=== PATIENT | female | born 1985 | race Caucasian/White ===

== ENCOUNTER 2019-09-06 14:57 | Emergency (ER) | payer OTHER ==
[2019-09-06 15:44] LABS: Absolute Lymphocytes (CBC) 1.2 K/uL (0.7-4.9); Basophils % 0.5 % (0-1.3); Lymphocytes % 25.5 % (15.3-44.8); MPV 8.7 fL (7.6-11.3); RBC Red Blood Cell Count 4.44 M/uL (3.86-4.86)
[2019-09-06 15:47] LABS: Protime INR 1.1
[2019-09-06 16:04] LABS: ALT/SGPT 20 U/L (12-78); AST/SGOT 13 U/L (15-37); Alkaline Phosphatase 79 U/L (45-117); BUN Blood Urea Nitrogen 8 mg/dL (7-18); Bicarbonate 19 mmol/L (21-32); Bilirubin Direct 0.1 mg/dL (0-0.2); Bilirubin Total 0.4 mg/dL (0.2-1.0); Glucose Level 81 mg/dL (74-106); Magnesium 2.1 mg/dL (1.8-2.4); NT PRO-BNP 126 pg/mL (<125); Potassium 3.5 mmol/L (3.5-5.1); Protein, Total 7.6 g/dL (6.4-8.2); Sodium Level 140 mmol/L (136-145); Troponin (Emerg Dept Use Only) < 0.02 ng/mL (0.0-0.045)
[2019-09-06] MEDS ORDERED: ONDANSETRON 4 MG/2 ML VIAL ONE (16:10)
[2019-09-06] MEDS ORDERED: MORPHINE 4 MG/ML SYR ONE (16:10)
--- NOTE | 2019-09-06 16:35 | EDPHYS ---
Physician Documentation [facility] Name: Hiral Patten Age: 34 yrs Sex: Female : 1985 Arrival Date: 09/06/2019 Time: 15:00 Bed 13 Private MD: Pastor Gomez T ED Physician Blanca Storey HPI: 09/06 15:23 This 34 yrs old Female presents to ER via Ambulatory with complaints of Chest pm1 Pressure. 15:23 The patient or guardian reports chest pain that is located primarily in the mid-sternal pm1 area. The pain does not radiate. Associated signs and symptoms: The patient has no apparent associated signs or symptoms, Pertinent negatives: abdominal pain, cough, headache, nausea, shortness of breath, vomiting. The chest pain is described as a pressure. Duration: The patient or guardian reports a single episode, that is still ongoing. Modifying factors: the symptoms are aggravated by deep breath, palpation of area, movement of arms. The patient has experienced similar episodes in the past, multiple times, on and off for the past several months. onset of current chest pain last night. Historical: - Allergies: 15:11 Sulfa (Sulfonamide Antibiotics); la1 15:11 Keflex; la1 - PMHx: 15:11 graves disease; leaky valve; la1 - Immunization history:: Adult Immunizations up to date. - Social history:: Smoking status: Patient/guardian denies using tobacco. - Ebola Screening: : No symptoms or risks identified at this time. ROS: 15:23 Constitutional: Negative for fever, chills, and weight loss, Eyes: Negative for injury, pm1 pain, redness, and discharge, ENT: Negative for injury, pain, and discharge, Neck: Negative for injury, pain, and swelling. 15:23 Respiratory: Negative for shortness of breath, cough, wheezing, and pleuritic chest pain, Abdomen/GI: Negative for abdominal pain, nausea, vomiting, diarrhea, and constipation, Back: Negative for injury and pain, : Negative for injury, bleeding, discharge, and swelling, MS/Extremity: Negative for injury and deformity, Skin: Negative for injury, rash, and discoloration, Neuro: Negative for headache, weakness, numbness, tingling, and seizure. 15:23 Cardiovascular: Positive for chest pain, Negative for edema, orthopnea, palpitations. Exam: 15:23 Constitutional: This is a well developed, well nourished patient who is awake, alert, pm1 and in no acute distress. Head/Face: Normocephalic, atraumatic. Neck: Trachea midline, no thyromegaly or masses palpated, and no cervical lymphadenopathy. Supple, full range of motion without nuchal rigidity, or vertebral point tenderness. No Meningismus. Cardiovascular: Regular rate and rhythm with a normal S1 and S2. No gallops, murmurs, or rubs. Normal PMI, no JVD. No pulse deficits. 15:23 Respiratory: Lungs have equal breath sounds bilaterally, clear to auscultation and percussion. No rales, rhonchi or wheezes noted. No increased work of breathing, no retractions or nasal flaring. Abdomen/GI: Soft, non-tender, with normal bowel sounds. No distension or tympany. No guarding or rebound. No evidence of tenderness throughout. Back: No spinal tenderness. No costovertebral tenderness. Full range of motion. Skin: Warm, dry with normal turgor. Normal color with no rashes, no lesions, and no evidence of cellulitis. MS/ Extremity: Pulses equal, no cyanosis. Neurovascular intact. Full, normal range of motion. 15:23 Chest/axilla: Inspection: normal, Palpation: crepitus, is not appreciated, tenderness, of the mid-sternal area, that totally reproduces the patient's complaints. 15:23 Neuro: Orientation: is normal, Motor: is normal, moves all fours. Vital Signs: 15:11 BP 113 / 76; Pulse 84; Resp 16; Temp 98.5; Pulse Ox 100% on R/A; Weight 92.99 kg; la1 Height 5 ft. 5 in. (165.10 cm); 15:11 Body Mass Index 34.11 (92.99 kg, 165.10 cm) la1 MDM: 15:15 Patient medically screened. pm1 15:25 Data reviewed: vital signs. Data interpreted: Pulse oximetry: on room air is 100 %. pm1 Interpretation: normal. 16:33 Counseling: I had a detailed discussion with the patient and/or guardian regarding: the pm1 historical points, exam findings, and any diagnostic results supporting the discharge/admit diagnosis, lab results, radiology results, the need for outpatient follow up, to return to the emergency department if symptoms worsen or persist or if there are any questions or concerns that arise at home. 09/06 15:23 Order name: Basic Metabolic Panel; Complete Time: 16:23 pm1 09/06 15:23 Order name: CBC with Diff; Complete Time: 16:00 pm1 09/06 15:23 Order name: LFT's; Complete Time: 16:23 pm1 09/06 15:23 Order name: Magnesium; Complete Time: 16:23 pm1 09/06 15:23 Order name: NT PRO-BNP; Complete Time: 16:23 pm1 09/06 15:23 Order name: PT-INR; Complete Time: 16:00 pm1 09/06 15:23 Order name: Troponin (emerg Dept Use Only); Complete Time: 16:23 pm1 09/06 15:23 Order name: XRAY Chest (1 view) pm1 09/06 15:23 Order name: EKG; Complete Time: 15:25 pm1 09/06 15:23 Order name: Cardiac monitoring; Complete Time: 15:48 pm1 09/06 15:23 Order name: EKG - Nurse/Tech; Complete Time: 15:48 pm1 09/06 15:23 Order name: IV Saline Lock; Complete Time: 15:48 pm1 09/06 15:23 Order name: Labs collected and sent; Complete Time: 15:48 pm1 09/06 15:23 Order name: O2 Per Protocol; Complete Time: 15:48 pm1 09/06 15:23 Order name: O2 Sat Monitoring; Complete Time: 15:48 pm1 Administered Medications: 16:13 Drug: Zofran 4 mg Route: IVP; Site: right antecubital; ph 16:20 Drug: morphine 4 mg Route: IVP; Site: right antecubital; ph 17:00 Drug: Flexeril 10 mg Route: PO; ph 17:00 Drug: TORadol - Ketorolac 15 mg Route: IVP; Site: right antecubital; ph Disposition: 09/07 16:45 Co-signature as Attending Physician, Blanca Storey MD. ma2 Disposition: 09/06/19 16:34 Discharged to Home. Impression: Chest pain, unspecified. - Condition is Stable. - Discharge Instructions: Nonspecific Chest Pain. - Prescriptions for Naprosyn 500 mg Oral Tablet - take 1 tablet by ORAL route 2 times per day As needed take with food; 30 tablet. Cyclobenzaprine 10 mg Oral Tablet - take 1 tablet by ORAL route every 8 hours As needed; 30 tablet. - Medication Reconciliation Form, Thank You Letter, Antibiotic Education, Prescription Opioid Use form. - Follow up: Emergency Department; When: As needed; Reason: Worsening of condition. Follow up: Private Physician; When: 2 - 3 days; Reason: Recheck today's complaints, Continuance of care, Re-evaluation by your physician. - Problem is new. - Symptoms have improved. Signatures: Dispatcher [employer] EDMS Janak Hand RN RN la1 Izzy Hogue RN RN ph Anurag Ramirez, HEALTH EDUCATION AIDE HEALTH EDUCATION AIDE pm1 Blanca Storey MD MD ma2 Corrections: (The following items were deleted from the chart) 09/06 17:19 16:34 09/06/2019 16:34 Discharged to Home. Impression: Chest pain, unspecified. ph Condition is Stable. Forms are Medication Reconciliation Form, Thank You Letter, Antibiotic Education, Prescription Opioid Use. Follow up: Emergency Department; When: As needed; Reason: Worsening of condition. Follow up: Private Physician; When: 2 - 3 days; Reason: Recheck today's complaints, Continuance of care, Re-evaluation by your physician. Problem is new. Symptoms have improved. pm1
--- NOTE | 2019-09-06 16:35 | ER ---
Nurse's Notes [facility] Name: Hiral Patten Age: 34 yrs Sex: Female : 1985 Arrival Date: 09/06/2019 Time: 15:00 Bed 13 Private MD: Pastor Gomez T Diagnosis: Chest pain, unspecified Presentation: 09/06 15:10 Presenting complaint: Patient states: I have been having chest pressure, nausea and la1 dizziness since last night. Transition of care: patient was not received from another setting of care. Onset of symptoms was September 06, 2019. Risk Assessment: Do you want to hurt yourself or someone else? Patient reports no desire to harm self or others. Initial Sepsis Screen: Does the patient meet any 2 criteria? No. Patient's initial sepsis screen is negative. Does the patient have a suspected source of infection? No. Patient's initial sepsis screen is negative. Care prior to arrival: None. 15:10 Method Of Arrival: Ambulatory la1 15:10 Acuity: CHUCK 3 la1 Historical: - Allergies: 15:11 Sulfa (Sulfonamide Antibiotics); la1 15:11 Keflex; la1 - PMHx: 15:11 graves disease; leaky valve; la1 - Immunization history:: Adult Immunizations up to date. - Social history:: Smoking status: Patient/guardian denies using tobacco. - Ebola Screening: : No symptoms or risks identified at this time. Screenin:18 Abuse screen: Denies threats or abuse. Denies injuries from another. Nutritional ph screening: No deficits noted. Tuberculosis screening: No symptoms or risk factors identified. Fall Risk None identified. Assessment: 15:38 General: Appears in no apparent distress. comfortable, obese, well groomed, Behavior is ph calm, cooperative, appropriate for age, Denies fever. Pain: Complains of pain in xyphoid area and mid-sternal area Pain radiates to right supraclavicular area, right clavicle, left supraclavicular area, left clavicle, anterior aspect of right upper chest and anterior aspect of left upper chest Quality of pain is described as pressure, Pain began last night. Neuro: Level of Consciousness is awake, alert, obeys commands, Oriented to person, place, time, situation. Cardiovascular: Capillary refill < 3 seconds in bilateral fingers Patient's skin is warm and dry. Respiratory: Airway is patent Respiratory effort is even, unlabored, Respiratory pattern is regular, symmetrical, Denies shortness of breath. GI: Reports nausea, Patient currently denies diarrhea, vomiting. Derm: Skin is intact, is healthy with good turgor, Skin is pink, warm \T\ dry. Musculoskeletal: Circulation, motion, and sensation intact. Range of motion: intact in all extremities. Vital Signs: 15:11 BP 113 / 76; Pulse 84; Resp 16; Temp 98.5; Pulse Ox 100% on R/A; Weight 92.99 kg; la1 Height 5 ft. 5 in. (165.10 cm); 15:11 Body Mass Index 34.11 (92.99 kg, 165.10 cm) la1 ED Course: 15:00 Patient arrived in ED. mr 15:01 Pastor Gomez MD is Private Physician. mr 15:11 Triage completed. la1 15:12 Arm band placed on right wrist. la1 15:13 Izzy Hogue RN is Primary Nurse. ph 15:14 Anurag Ramirez NP is PHCP. pm1 15:15 Blanca Storey MD is Attending Physician. pm1 15:18 Patient has correct armband on for positive identification. Placed in gown. Bed in low ph position. Call light in reach. Side rails up X 1. residential monitor on. Pulse ox on. NIBP on. Door closed. Noise minimized. Warm blanket given. 15:41 Inserted saline lock: 22 gauge in right antecubital area, using aseptic technique. ph Blood collected. Patient maintains SpO2 saturation greater than 95% on room air. 15:47 XRAY Chest (1 view) In Process Unspecified. EDMS Administered Medications: 16:13 Drug: Zofran 4 mg Route: IVP; Site: right antecubital; ph 16:20 Drug: morphine 4 mg Route: IVP; Site: right antecubital; ph 17:00 Drug: Flexeril 10 mg Route: PO; ph 17:00 Drug: TORadol - Ketorolac 15 mg Route: IVP; Site: right antecubital; ph Outcome: 16:34 Discharge ordered by . pm1 17:19 Patient left the ED. ph Signatures: Dispatcher [employer] EDMS Kitty Austin Giselajamee Janak, RN RN la1 Izzy Hogue, RN RN ph Anurag Ramirez, FIRST CALENDER WORKER FIRST CALENDER WORKER pm1
--- NOTE | 2019-09-06 16:55 | RAD REPORT ---
EXAM DESCRIPTION: Sarah Single View09/06/2019 3:46 pm CLINICAL HISTORY: Chest pain COMPARISON: none FINDINGS: The lungs appear clear of acute infiltrate. The heart is normal size IMPRESSION: No acute abnormalities displayed
[2019-09-06] MEDS ORDERED: CYCLOBENZAPRINE 10 MG TAB ONE (17:01)
[2019-09-06] MEDS ORDERED: KETOROLAC 30 MG/ML INJ ONE (17:01)
[2019-09-06 17:32] VITALS: BP 113/76; TEMP 98.5; O2SAT 100
--- NOTE | 2019-09-07 08:39 | EKG ---
Test Date: 2019-09-06 Test Time: 15:19:11 [employer] T[employer] Technician: MYRTLE MEASUREMENT RESULTS: Intervals: Rate: 75 LA: 134 QRSD: 82 QT: 378 QTc: 422 [place]: P: 35 LA: 134 QRS: 1 T: 1 INTERPRETIVE STATEMENTS: Normal sinus rhythm Low voltage QRS Abnormal ECG No previous ECG available for comparison Electronically Signed On 09-07-19 08:38:41 PREMIUM NOTE INTEREST CALCULATOR CLERK by James Conroy
== END 2019-09-06 17:19 | disposition home or self-care (01) ==
LOC: ER 14:57
DX: R07.9 Chest pain, unspecified (principal); E05.00 Thyrotoxicosis with diffuse goiter without thyrotoxic crisis or storm; Z88.2 Allergy status to sulfonamides; Z88.8 Allergy status to other drugs, medicaments and biological substances
CPT/HCPCS: 93005; 85025; 80048; 36415; 83735; 85610; 80076; 84484; 83880; 71045; 96375; 96374; 99285; J2405

== ENCOUNTER 2021-01-21 18:59 | Emergency (ER) | payer OTHER ==
[2021-01-21 20:14] LABS: Absolute Lymphocytes (CBC) 2.1 K/uL (0.7-4.9); Basophils % 0.6 % (0-1.3); Hematocrit 36.2 % (36.0-45.0); Lymphocytes % 32.4 % (15.3-44.8); MPV 8.9 fL (7.6-11.3); RBC Red Blood Cell Count 4.32 M/uL (3.86-4.86)
[2021-01-21 20:20] LABS: Protime INR 1.02
[2021-01-21 20:33] LABS: ALT/SGPT 16 U/L (12-78); AST/SGOT 12 U/L (15-37); Albumin 3.9 g/dL (3.4-5.0); Alkaline Phosphatase 70 U/L (45-117); BUN Blood Urea Nitrogen 10 mg/dL (7-18); Bicarbonate 21 mmol/L (21-32); Bilirubin Direct 0.1 mg/dL (0-0.2); Bilirubin Total 0.3 mg/dL (0.2-1.0); Glucose Level 82 mg/dL (74-106); Magnesium 2.2 mg/dL (1.8-2.4); NT PRO-BNP 62 pg/mL (<125); Potassium 3.9 mmol/L (3.5-5.1); Protein, Total 7.7 g/dL (6.4-8.2); Sodium Level 140 mmol/L (136-145); Troponin (Emerg Dept Use Only) < 0.02 ng/mL (0.0-0.045)
--- NOTE | 2021-01-21 20:55 | RAD REPORT ---
EXAM DESCRIPTION: Sarah Single View01/21/2021 8:35 pm CLINICAL HISTORY: Chest pain COMPARISON: 2018 FINDINGS: The lungs appear clear of acute infiltrate. The heart is normal size IMPRESSION: No acute abnormalities displayed
[2021-01-21 21:03] LABS: Platelet Estimate ADEQ; White Blood Cell Scan OK (OK)
[2021-01-21 21:04] LABS: Blood Morphology Comment NOT SEEN (NOT SEEN)
[2021-01-21] MEDS ORDERED: NA CHLORIDE 0.9% 500 ML ONE (21:53)
[2021-01-21 22:39] LABS: Urine Blood NEGATIVE (Negative); Urine Glucose NEGATIVE (Negative); Urine Protein NEGATIVE (NEG); Urine Specific Gravity 1.025 (1.005-1.030); Urine Specific Gravity/Preg 1.025 (1.005-1.030); Urine pH 6.5 (5.0-7.0)
[2021-01-21 23:16] LABS: Urine Bacteria >50 /HPF (<20); Urine RBC <5 /HPF (NONE SEEN)
[2021-01-21 23:17] LABS: Urine Mucus 3+ /HPF (NONE SEEN)
--- NOTE | 2021-01-22 00:02 | ER ---
Nurse's Notes [facility] Name: Hiral Patten Age: 35 yrs Sex: Female : 1985 Arrival Date: 01/21/2021 Time: 19:01 Bed 16 Private MD: Diagnosis: Palpitations;Other chest pain Presentation: 01/21 19:16 Chief complaint: Patient states: Palpitations for 2 days, Chest pressure for 1 day. No ll1 fever or cough. Slight nausea. Coronavirus screen: Client denies travel out of the [place] in the last 14 days. At this time, the client does not indicate any symptoms associated with coronavirus-19. Ebola Screen: Patient denies travel to an Ebola-affected area in the 21 days before illness onset. Initial Sepsis Screen: Does the patient meet any 2 criteria? No. Patient's initial sepsis screen is negative. Does the patient have a suspected source of infection? No. Patient's initial sepsis screen is negative. Risk Assessment: Do you want to hurt yourself or someone else? Patient reports no desire to harm self or others. Onset of symptoms was January 20, 2021. 19:16 Method Of Arrival: Ambulatory ll1 19:16 Acuity: CHUCK 3 ll1 Historical: - Allergies: 19:16 Sulfa (Sulfonamide Antibiotics); ll1 19:16 Keflex; ll1 - PMHx: 19:16 graves disease; Leaky valve; "heart skips beats"; ll1 - PSHx: 19:16 ; ll1 - Immunization history:: Flu vaccine is not up to date. - Social history:: Smoking status: Patient denies any tobacco usage or history of. Screenin:08 Abuse screen: Denies threats or abuse. Nutritional screening: No deficits noted. vg1 Tuberculosis screening: No symptoms or risk factors identified. Fall Risk No fall in past 12 months (0 pts). No secondary diagnosis (0 pts). IV access (20 points). Ambulatory Aid- None/Bed Rest/Nurse Assist (0 pts). Gait- Normal/Bed Rest/Wheelchair (0 pts) Mental Status- Oriented to own ability (0 pts). Total Damico Fall Scale indicates No Risk (0-24 pts). Assessment: 19:45 General: Appears in no apparent distress. comfortable, Behavior is calm, cooperative. vg1 Pain: Complains of pain in xyphoid area Pain does not radiate. Pain currently is 8 out of 10 on a pain scale. Pain began this morning. Neuro: Level of Consciousness is awake, alert, obeys commands, Oriented to person, place, time, situation. Neuro: Reports headache. Cardiovascular: Patient's skin is warm and dry. Respiratory: Airway is patent Respiratory effort is even, unlabored. GI: Reports nausea, Patient currently denies diarrhea, vomiting. : No signs and/or symptoms were reported regarding the genitourinary system. EENT: No signs and/or symptoms were reported regarding the EENT system. Derm: Skin is intact, Skin is clammy. Musculoskeletal: Circulation, motion, and sensation intact. 21:56 Reassessment: Patient appears in no apparent distress at this time. No changes from vg1 previously documented assessment. Patient and/or family updated on plan of care and expected duration. Pain level reassessed. Patient is alert, oriented x 3, equal unlabored respirations, skin warm/dry/pink. 01/22 00:19 Reassessment: Patient appears in no apparent distress at this time. No changes from vg1 previously documented assessment. Patient and/or family updated on plan of care and expected duration. Pain level reassessed. Patient is alert, oriented x 3, equal unlabored respirations, skin warm/dry/pink. Vital Signs: 01/21 19:16 BP 117 / 71; Pulse 86; Resp 17; Temp 98.4; Pulse Ox 100% ; Weight 90.72 kg; Height 5 ll1 ft. 3 in. (160.02 cm); Pain 8/10; 19:45 BP 107 / 67; Pulse 94; Resp 16; Pulse Ox 100% on R/A; vg1 21:00 BP 106 / 70; Pulse 83; Resp 20; Pulse Ox 100% on R/A; vg1 22:00 BP 110 / 65; Pulse 91; Resp 22; Pulse Ox 100% on R/A; vg1 23:00 BP 112 / 75; Pulse 83; Resp 20; Pulse Ox 100% on R/A; vg1 01/22 00:00 BP 107 / 73; Pulse 82; Resp 22; Pulse Ox 98% on R/A; vg1 01/21 19:16 Body Mass Index 35.43 (90.72 kg, 160.02 cm) ll1 ED Course: 01/21 19:01 Patient arrived in ED. mr 19:15 Arm band placed on. ll1 19:18 Triage completed. ll1 19:18 Kanu Aguirre PA is PHCP. cp 19:18 Theodore Encinas MD is Attending Physician. cp 19:41 Barbi Curry, RN is Primary Nurse. vg1 20:04 EKG done, by ED staff, reviewed by Kanu GARCIA. vg1 20:08 Patient has correct armband on for positive identification. Placed in gown. Bed in low vg1 position. Call light in reach. Side rails up X 1. 20:09 bus driver/monitor on. Pulse ox on. NIBP on. vg1 20:09 Patient maintains SpO2 saturation greater than 95% on room air. vg1 20:35 XRAY Chest (1 view) In Process Unspecified. EDMS 21:30 Notified Nurse Practitioner and/or Physician Fish Net Stringer of a critical lab result(s), D bb Dimer of [address] Kanu GARCIA notified. 23:16 CT Chest For PE Angio In Process Unspecified. EDMS 01/22 00:21 No provider procedures requiring assistance completed. IV discontinued, intact, vg1 bleeding controlled, No redness/swelling at site. Pressure dressing applied. Administered Medications: 01/21 22:47 Drug: NS 0.9% 500 ml Route: IV; Rate: bolus; Site: left antecubital; vg1 23:45 Follow up: IV Status: Completed infusion; IV Intake: 500ml vg1 01/22 00:05 Drug: TORadol - Ketorolac 15 mg Route: IVP; Site: left antecubital; vg1 00:19 Follow up: Response: No adverse reaction vg1 Intake: 01/21 23:45 IV: 500ml; Total: 500ml. vg1 Outcome: 01/22 00:02 Discharge ordered by . cp 00:21 Discharged to home ambulatory. vg1 00:21 Condition: stable 00:21 Discharge instructions given to patient, Instructed on discharge instructions, follow up and referral plans. medication usage, Demonstrated understanding of instructions, follow-up care, medications, Prescriptions given X 1. 00:21 Patient left the ED. vg1 Signatures: Dispatcher [facility] Kitty Austin Brenda, RN RN bb Kanu Aguirre PA PA cp Garcia, Victoria, RN RN vg1 Mumtaz Knight RN RN ll1 Corrections: (The following items were deleted from the chart) 01/21 19:26 19:16 Chief complaint: Patient states: Palpitations for 2 days, Chest pressure for 1 ll1 days. No fever or cough. Slight nausea. ll1
--- NOTE | 2021-01-22 00:02 | EDPHYS ---
Physician Documentation [facility] Name: Hiral Patten Age: 35 yrs Sex: Female : 1985 Arrival Date: 01/21/2021 Time: 19:01 Bed 16 Private MD: ED Physician Theodore Encinas HPI: 01/21 19:45 This 35 yrs old Female presents to ER via Ambulatory with complaints of Chest cp Pain. 19:45 The patient presents with a history of heart skipping beats. cp 19:45 Context: The symptoms occur at rest, without known cause. Onset: The symptoms/episode cp began/occurred 2 day(s) ago. Duration: The patient or guardian reports multiple episodes, that are intermittent. Modifying factors: The symptoms are aggravated by nothing. Associated signs and symptoms: Pertinent positives: chest pain, Pertinent negatives: cough, fever, SOB, syncope, vomiting. Severity of symptoms: in the emergency department the symptoms are unchanged despite home interventions. Historical: - Allergies: 19:16 Sulfa (Sulfonamide Antibiotics); ll1 19:16 Keflex; ll1 - PMHx: 19:16 graves disease; Leaky valve; "heart skips beats"; ll1 - PSHx: 19:16 ; ll1 - Immunization history:: Flu vaccine is not up to date. - Social history:: Smoking status: Patient denies any tobacco usage or history of. ROS: 19:50 Constitutional: Negative for body aches, chills, fever, poor PO intake. cp 19:50 Eyes: Negative for injury, pain, redness, and discharge. cp Exam: 19:55 Constitutional: The patient appears in no acute distress, alert, awake, cp non-diaphoretic, non-toxic, well developed, well nourished, obese. 19:55 Head/Face: Normocephalic, atraumatic. cp 19:55 Eyes: Periorbital structures: appear normal, Pupils: equal, round, and reactive to light and accomodation, Extraocular movements: intact throughout, Conjunctiva: normal, no exudate, no injection, Sclera: no appreciated abnormality, Lids and lashes: appear normal, bilaterally. 19:55 ENT: External ear(s): are unremarkable, Nose: is normal, Mouth: Lips: moist, Oral mucosa: moist, Posterior pharynx: Airway: no evidence of obstruction, patent. 19:55 Neck: ROM/movement: is normal, is supple, without pain, no range of motions limitations. 19:55 Chest/axilla: Inspection: normal, Palpation: is normal, no crepitus, no tenderness. 19:55 Cardiovascular: Rate: normal, Rhythm: regular, Edema: is not appreciated, JVD: is not appreciated. 19:55 Respiratory: the patient does not display signs of respiratory distress, Respirations: normal, no use of accessory muscles, no retractions, labored breathing, is not present, Breath sounds: are clear throughout, no decreased breath sounds, no stridor, no wheezing. 19:55 Abdomen/GI: Inspection: abdomen appears normal, Palpation: abdomen is soft and non-tender, in all quadrants. 19:55 Back: pain, is absent, ROM is normal. 19:55 Musculoskeletal/extremity: DVT Exam: No signs of deep vein thrombosis. 19:55 Skin: cellulitis, is not appreciated, no rash present. 19:55 Neuro: Orientation: to person, place \\T\\ time. Mentation: is normal, Motor: moves all fours, strength is normal, Sensation: is normal. 20:00 ECG was reviewed by the Attending Physician. cp Vital Signs: 19:16 BP 117 / 71; Pulse 86; Resp 17; Temp 98.4; Pulse Ox 100% ; Weight 90.72 kg; Height 5 ll1 ft. 3 in. (160.02 cm); Pain 8/10; 19:45 BP 107 / 67; Pulse 94; Resp 16; Pulse Ox 100% on R/A; vg1 21:00 BP 106 / 70; Pulse 83; Resp 20; Pulse Ox 100% on R/A; vg1 22:00 BP 110 / 65; Pulse 91; Resp 22; Pulse Ox 100% on R/A; vg1 23:00 BP 112 / 75; Pulse 83; Resp 20; Pulse Ox 100% on R/A; vg1 01/22 00:00 BP 107 / 73; Pulse 82; Resp 22; Pulse Ox 98% on R/A; vg1 01/21 19:16 Body Mass Index 35.43 (90.72 kg, 160.02 cm) ll1 MDM: 01/21 19:22 Patient medically screened. cp 20:00 Differential diagnosis: arrythmia, dehydration, stress disorder. 01/22 00:02 Data reviewed: vital signs, nurses notes, lab test result(s), EKG, radiologic studies, cp CT scan, plain films. 00:02 Test interpretation: by ED physician or midlevel provider: ECG, plain radiologic cp studies. 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 Response to treatment: the patient's symptoms have mildly improved after treatment. ED course: VSS. Labs, EKG, radiology studies reviewed. Patient reports she has seen cardiology in the past and had holter monitor placed. Will discharge to home for continued monitoring and recommend f/u with cardiology. 01/21 19:31 Order name: Basic Metabolic Panel 01/21 19:31 Order name: CBC with Diff 01/21 19:31 Order name: LFT's 01/21 19:31 Order name: Magnesium; Complete Time: 20:49 01/21 19:31 Order name: NT PRO-BNP; Complete Time: 20:49 01/21 19:31 Order name: PT-INR; Complete Time: 20:49 01/21 19:31 Order name: Troponin (emerg Dept Use Only); Complete Time: 20:49 01/21 19:31 Order name: Urine Microscopic Only; Complete Time: 23:50 01/21 19:32 Order name: Basic Metabolic Panel; Complete Time: 20:49 EDVT 01/21 20:49 Interpretation: Normal except: CL 111; GFR 68. 01/21 19:32 Order name: CBC with Automated Diff; Complete Time: 21:47 EDVT 01/21 23:02 Interpretation: Normal except: PLT 143; RDW 15.6. 01/21 19:32 Order name: Liver (Hepatic) Function; Complete Time: 20:49 EDVT 01/21 21:03 Order name: CBC Smear Scan; Complete Time: 21:47 EDVT 01/21 21:05 Order name: D-Dimer 01/21 21:05 Order name: LAB Add On 01/21 19:19 Order name: EKG; Complete Time: 19:20 cp 01/21 19:19 Order name: EKG - Nurse/Tech; Complete Time: 20:04 01/21 19:31 Order name: XRAY Chest (1 view); Complete Time: 21:00 cp 01/21 19:31 Order name: Cardiac monitoring; Complete Time: 20:04 01/21 19:31 Order name: IV Saline Lock; Complete Time: 20:04 01/21 19:31 Order name: Labs collected and sent; Complete Time: 20:04 cp 01/21 19:31 Order name: O2 Per Protocol; Complete Time: 20:04 cp 01/21 21:05 Order name: D-Dimer; Complete Time: 21:47 EDMS 01/21 21:47 Order name: CT Chest For PE Angio 01/21 22:37 Order name: Urine Dipstick--Ancillary (enter results) [facility] 01/21 22:37 Order name: Urine --Ancillary (enter results) [facility] 01/21 22:37 Order name: Urine Dipstick-Ancillary; Complete Time: 23:02 EDMS 01/21 22:37 Order name: Urine --Ancillary; Complete Time: 23:02 EDMS 01/21 23:17 Order name: Urine Culture [facility] 01/21 19:31 Order name: O2 Sat Monitoring; Complete Time: 20:04 01/21 19:31 Order name: Urine Dipstick-Ancillary (obtain specimen); Complete Time: 22:48 01/21 19:31 Order name: Urine Test (obtain specimen); Complete Time: 20:04 cp EC/27 20:00 Rate is 86 beats/min. Rhythm is regular. HI interval is normal. QRS interval is normal. cp QT interval is normal. T waves are Inverted in leads III, aVR. Interpreted by me. Reviewed by me. Administered Medications: 22:47 Drug: NS 0.9% 500 ml Route: IV; Rate: bolus; Site: left antecubital; vg1 23:45 Follow up: IV Status: Completed infusion; IV Intake: 500ml vg1 01/22 00:05 Drug: TORadol - Ketorolac 15 mg Route: IVP; Site: left antecubital; vg1 00:19 Follow up: Response: No adverse reaction vg1 Disposition: 05:17 Co-signature as Attending Physician, Theodore Encinas MD. [email or web address] Disposition: 01/22/21 00:02 Discharged to Home. Impression: Palpitations, Other chest pain. - Condition is Stable. - Discharge Instructions: Nonspecific Chest Pain, Palpitations, Aspirin and Your Heart. - Prescriptions for Naprosyn 500 mg Oral Tablet - take 1 tablet by ORAL route 2 times per day take with food; 20 tablet. - Medication Reconciliation Form, Thank You Letter, Antibiotic Education, Prescription Opioid Use form. - Follow up: Private Physician; When: 1 - 2 days; Reason: Recheck today's complaints. - Problem is new. - Symptoms have improved. Signatures: Dispatcher [employer] EDMS Kanu Aguirre PA PA cp Garcia, Victoria, RN RN vg1 Mumtaz Knight RN RN 1 Theodore Encinas MD MD [email or web address] Corrections: (The following items were deleted from the chart) 00:21 00:02 01/22/2021 00:02 Discharged to Home. Impression: Palpitations; Other chest pain. vg1 Condition is Stable. Forms are Medication Reconciliation Form, Thank You Letter, Antibiotic Education, Prescription Opioid Use. Follow up: Private Physician; When: 1 - 2 days; Reason: Recheck today's complaints. Problem is new. Symptoms have improved. cp
[2021-01-22] MEDS ORDERED: KETOROLAC 30 MG/ML INJ ONE (00:14)
[2021-01-22 04:26] VITALS: TEMP 98.4
[2021-01-22 04:33] VITALS: BP 107/73; O2SAT 98
--- NOTE | 2021-01-22 09:49 | EKG ---
Test Date: 2021-01-21 Test Time: 19:52:16 Emt B: CAYT MEASUREMENT RESULTS: Intervals: Rate: 86 ME: 146 QRSD: 82 QT: 376 QTc: 449 [place]: P: 56 ME: 146 QRS: 24 T: 15 INTERPRETIVE STATEMENTS: Normal sinus rhythm Normal ECG Compared to ECG 09/06/2019 15:19:11 No significant changes Electronically Signed On 01-22-21 09:47:38 CDT by Angel Lea
--- NOTE | 2021-01-23 12:21 | RAD REPORT ---
EXAM DESCRIPTION: CT - Chest For Pe Angio - 01/22/2021 7:02 am CLINICAL HISTORY: Chest pain;Palpitations. COMPARISON: None. TECHNIQUE: CTA of the chest was performed following intravenous administration of iodinated contrast . Axial soft tissue and bone window, and coronal and sagittal soft tissue window reconstructions were created and sent to PACS. 3D postprocessing was performed on an independent workstation, with images sent to PACS for subsequen t review. This exam was performed according to our departmental dose-optimization program, which includes autom ated exposure control, adjustment of the mA and/or kV according to patient size and/or use of iterati ve reconstruction technique. FINDINGS: Vascular: Slightly suboptimal evaluation due to streak artifact from patient body habitus. The pulmonary arteries are adequately opacified to the segmental level. No CT evidence of acute pulm onary thromboembolism. No evidence of aortic aneurysm or dissection. Lungs and pleura: No pulmonary consolidation. No pleural effusion. No pneumothorax. Mediastinum and neck: No mediastinal lymphadenopathy by CT size criteria. Unremarkable appearance of the thyroid gland. Cardiac: No cardiomegaly or pericardial effusion. Abdomen: No significant upper abdominal abnormality identified. Musculoskeletal: No concerning osseous abnormality. IMPRESSION: 1. Slightly suboptimal evaluation due to streak artifact from patient body habitus. 2. No CTA evidence of acute pulmonary thromboembolism identified. 3. Clear lungs. Electronically signed by: Laisha Boggs MD 01/21/2021 11:31 PM CDT Due to temporary technical issues with the PACS/Fluency reporting system, reports are being signed by the in house radiologist without review as a courtesy to ensure prompt reporting. The interpreting r adiologist is fully responsible for the content of the report.
== END 2021-01-22 00:21 | disposition home or self-care (01) ==
LOC: ER 18:59
DX: R00.2 Palpitations (principal); Z88.1 Allergy status to other antibiotic agents; Z88.2 Allergy status to sulfonamides
CPT/HCPCS: 96361; 93005; 87088; 85025; 87086; 80048; 36415; 83735; 81025; 85610; 85379; 80076; 84484; 83880; 71275; 71045; 96374; 99285; Q9967; J7040; 81003; 81015

== ENCOUNTER 2021-08-10 18:43 | Emergency (ER) | payer OTHER ==
--- NOTE | 2021-08-10 20:05 | RAD REPORT ---
EXAM DESCRIPTION: RAD - Humerus Left - 08/10/2021 7:53 pm CLINICAL HISTORY: Pain;Swelling COMPARISON: No comparisons FINDINGS: Only a single AP projection is submitted. No gross fracture or dislocation seen.
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
[2021-08-10 20:56] VITALS: BP 109/78; TEMP 98.9; O2SAT 100
== END 2021-08-10 20:35 | disposition home or self-care (01) ==
LOC: ER 18:43
DX: S40.022A Contusion of left upper arm, initial encounter (principal); Y04.2XXA Assault by strike against or bumped into by another person, initial encounter; Z88.2 Allergy status to sulfonamides; Z88.8 Allergy status to other drugs, medicaments and biological substances
CPT/HCPCS: 99283